=== PATIENT | male | born 1960 | race American Indian/Alaskan Native ===

== ENCOUNTER 2016-09-12 14:56 | Emergency (ER) | payer MEDICARE ==
[2016-09-12 15:42] VITALS: BP 142/85
[2016-09-12] MEDS ORDERED: MORPHINE IV ONE (16:59)
[2016-09-12] MEDS ORDERED: ZOFRAN IV ONE (16:59)
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
== END 2016-09-12 18:55 | disposition home or self-care (01) ==
LOC: ED 14:56
DX: S16.1XXA Strain of muscle, fascia and tendon at neck level, initial encounter (principal); S20.211A Contusion of right front wall of thorax, initial encounter; S09.90XA Unspecified injury of head, initial encounter; M54.5 Low back pain; M54.16 Radiculopathy, lumbar region; I10 Essential (primary) hypertension; Z95.818 Presence of other cardiac implants and grafts; Z79.82 Long term (current) use of aspirin; V89.2XXA Person injured in unspecified motor-vehicle accident, traffic, initial encounter; Y93.89 Activity, other specified; Y99.8 Other external cause status; Y92.488 Other paved roadways as the place of occurrence of the external cause
CPT/HCPCS: 70450; 71010; 71250; 72125; 72131; 93005; 93010; 96374; 96375; 99284; J2270; J2405